=== PATIENT | female | born 1975 | race African-American/Black ===

== ENCOUNTER 2021-02-27 14:04 | Emergency (ER) | payer OTHER ==
[~2021-02-27] VITALS: Ht 167.6 cm; Wt 74.0 kg
[~2021-02-27 14:04] MED LIST: MULT-1146 MT; VIT1CAPS26 MT
[2021-02-27 14:20] VITALS: BP 130/56
== END 2021-02-27 14:49 | disposition left against medical advice (07) ==
LOC: ER 14:04
DX: Z53.21 Procedure and treatment not carried out due to patient leaving prior to being seen by health care provider (principal)

== ENCOUNTER 2021-03-01 09:25 | Emergency (ER) | payer OTHER ==
[~2021-03-01] VITALS: Ht 167.6 cm; Wt 74.0 kg
[2021-03-01 10:56] LABS: HEMATOCRIT. 29.2 % (36.0-48.0); HEMOGLOBIN. 9.3 g/dL (12.0-16.0); MEAN CORPUSCULAR HEMOGLOBIN 21.4 pg (28.0-32.0); MEAN CORPUSCULAR VOLUME 66.8 fL (81.0-99.0); MEAN PLATELET VOLUME 8.3 fl (7.4-10.4); PLATELET 275 x1000/uL (130-400); RED BLOOD CELL COUNT 4.37 mill/uL (4.2-5.4); RED CELL DISTRIBUTION WIDTH 19.9 % (11.6-14.6)
[2021-03-01 11:00] LABS: CLARITY URINE CLEAR (CLEAR); COLOR URINE YELLOW (YELLOW); KETONES URINE TRACE (NEGATIVE); LEUKOCYTE ESTERASE URINE NEGATIVE (NEGATIVE); NITRITE URINE NEGATIVE (NEGATIVE); OCCULT BLOOD URINE TRACE (NEGATIVE); PH URINE 5.5 (4.5-8.0); PROTEIN URINE NEGATIVE (NEGATIVE); SPECIFIC GRAVITY URINE 1.026 (1.005-1.030); UROBILINOGEN URINE 0.2 E.U./dL (0.2-1.0)
[2021-03-01 11:06] LABS: PROTHROMBIN TIME 10.3 sec (9.6-11.0)
[2021-03-01 11:09] LABS: CHLORIDE 108 mEq/L (98-107)
[2021-03-01 11:21] LABS: B-HCG QUANTITATIVE < 1.0 mIU/mL (<3)
[2021-03-01 12:11] LABS: PLATELET ESTIMATE NORMAL
[2021-03-01] MEDS ORDERED: IRON-16 PO (13:40)
[2021-03-01] MEDS ORDERED: ASCO100T12 MT (13:40)
[2021-03-01 14:23] VITALS: BP 147/76
== END 2021-03-01 14:26 | disposition home or self-care (01) ==
LOC: ER 09:25
DX: R10.2 Pelvic and perineal pain (principal); D25.9 Leiomyoma of uterus, unspecified; D64.9 Anemia, unspecified; Z88.0 Allergy status to penicillin
CPT/HCPCS: 36415; 76856; 80053; 81003; 81025; 84702; 85025; 86850; 86900; 99284